=== PATIENT | female | born 1985 | race Caucasian/White ===

== ENCOUNTER 2018-03-12 15:55 | Emergency (ER) | payer SELFPAY ==
--- NOTE | 2018-03-12 16:35 | PD ---
HPI Chief Complaint Abdominal pain Date Seen: Mar 12, 2018 Travel History International Travel<30 Days: No Contact w/Intl Traveler<30Days: No Known Affected Area: No History of Present Illness HPI Patient is a 33-year-old at 18/6 weeks gestation that presents to the [facility] ED with a chief complaint of abdominal pain that began today. Patient describes the pain as 6/10 weird, burning, cramping pain that is worse with movement and better when lying down. The pain is located in her upper and mid abdomen and suprapubic area. She has not taken any medications for the pain. Patient also reports foul-smelling vaginal discharge but is unsure of the color. She denies contractions, gush of leakage of fluid, vaginal bleeding , vaginal itching, dysuria, fever, chills, diarrhea, back pain, headache, chest pain, shortness of breath, and blurry vision. Her last sexual intercourse was 2 weeks ago. She has not really felt her baby move today. She had one episode of vomiting yesterday that looked like food and endorses back pain. Notably, the patient has not had care during this . Patient moved to the [place] area to stay with her best friend 2 weeks ago due to some issues with the baby's father. She may have had an ultrasound early on but her JESUS is based on her LMP. She would like to know the sex of her baby. Weeks Gestation: 18 Para: 1 : 5 : 3 History Past Medical History Medical History: Denies Significant Hx Obstetric History Obstetric History 1 vaginal full-term uncomplicated delivery at 40 weeks in 2008. 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 SKIN: Warm and dry. HEAD: Normocephalic and atraumatic. EYES: No scleral icterus. No injection or drainage. ENT: No nasal drainage noted. Mucous membranes pink. Airway patent. NECK: Supple, trachea midline. No JVD. CARDIOVASCULAR: Regular rate and rhythm without murmurs, gallops, or rubs. RESPIRATORY: Breath sounds equal bilaterally. No accessory muscle use. ABDOMEN/GI: Abdomen soft, non-tender, bowel sounds present, no rebound, no guarding Gravid to 18 weeks size GENITOURINARY: External Genitalia: intact and normal in appearance FHT's: 145 by doppler PELVIC EXAM: Normally developed genitalia with no external lesions or eruptions. Vagina and cervix show copious amounts of white curd-like vaginal discharge. OS patent. No cervical motion tenderness. No cervical friability. Musty vaginal odor. EXTREMITIES: No cyanosis or edema. BACK: Nontender without obvious deformity. No CVA tenderness. NEUROLOGICAL: Awake and alert. Motor and sensory grossly within normal limits. Five out of 5 muscle strength in all muscle groups. Normal speech. Data Data Vital Signs Reviewed: Yes Orders Orders Vital Signs (Adult) .ON ADMISSION (03/12/18 16:22) ^ Labor Status (03/12/18 16:22) Urinalysis - C+S If Indicated (03/12/18 16:22) ^ Non Stress Test (03/12/18 16:22) ^ Hydration (03/12/18 16:22) Ob/Psych Drug Screen, Urine (03/12/18 16:22) Wet Prep Profile (03/12/18 16:34) MDM Medical Record Reviewed: Yes Interpretation(s) 33-year-old presents with abdominal pain of 1 day duration Plan 1. IUP -FHT 145 by doppler - reassuring -Patient will need to establish with an OB provider for care * She has been provided information about the [facility] and [facility] 2. Abdominal pain -UA not indicative of infection -UDS only positive for marijuana -Wet prep profile was negative although curd-like vaginal discharge was observed on exam -Recommend Monistat applied vaginally at bedtime x 3 days -OTC Tylenol for pain - administer 1000mg in the ED DW Dr. Cook Diagnosis Diagnosis: Primary Impression: Abdominal pain Additional Impressions: Uterine contractions during 18 weeks gestation of Dehydration during Disposition: 01 DISCHARGE HOME Condition: Stable Scripts Miconazole 3 Vaginal Cream (Monistat 3 Vaginal Cream) 4 % Cream 1 APPL VAGINAL HS for Infection, #1 BOX 0 Refills Prov: Deanne Mario MD R2 03/12/18 Patient Instructions: Abdominal Pain in (ED) Deanne Mario MD R2 Mar 12, 2018 16:35
[2018-03-12] MEDS ORDERED: PREN1TAB45 PO (16:52)
[2018-03-12 16:59] LABS: BACTERIA, URINE FEW /hpf; BILIRUBIN, URINE NEG (NEG); BLOOD, URINE NEG (NEG); GLUCOSE,URINE NEG (NEG); KETONE, URINE NEG (NEG); MUCUS URINE FEW /lpf (OCC); NITRITE,URINE NEG (NEG); PH, URINE 6.5 (5.0-8.5); SQUAMOUS EPITHELIAL CELL URINE 6 /hpf (0-5); URINE COLOR YELLOW (YELLW/STRAW); URINE LEUKOCYTE ESTERASE NEG (NEG)
[2018-03-12] MEDS ORDERED: MICO1CRE2 VAGINAL (17:36)
[2018-03-12] MEDS ORDERED: ACETAMINOPHEN 500 MG CPLT PO ONE (17:45)
== END 2018-03-12 18:00 | disposition home or self-care (01) ==
LOC: HOBED 15:55
DX: O26.892 Other specified pregnancy related conditions, second trimester (principal); R10.9 Unspecified abdominal pain; N89.8 Other specified noninflammatory disorders of vagina; O62.9 Abnormality of forces of labor, unspecified; O99.282 Endocrine, nutritional and metabolic diseases complicating pregnancy, second trimester; E86.0 Dehydration; O99.333 Smoking (tobacco) complicating pregnancy, third trimester; O99.322 Drug use complicating pregnancy, second trimester; F12.90 Cannabis use, unspecified, uncomplicated; Z3A.18 18 weeks gestation of pregnancy
CPT/HCPCS: 80307; 81001; 87210; 99284; G0481

== ENCOUNTER 2018-08-01 08:40 | Inpatient (IN) ==
[2018-08-01] MEDS ORDERED: ceFAZolin 2 GM Premix Inj 2 GM/50 ML PIGGYBACK IV.SIG PRN (09:17)
--- NOTE | 2018-08-01 09:17 | P.HPOB ---
History of Present Illness Primary Care Physician: No Primary Care Physician , [facility] PCP History of Present Illness: 33 y/o F, at 39wk1 presents for c/s for LGA, hx of shoulder dystocia w/ clavicle fracture. Denies cxns, LOF, VB. +FM obhx: x 1 - complicated by shoulder dystocia, clavicle fracture requiring 1 year of PT TOP x 3 - medically medhx: HEP C surghx: tonsillectomy adenoidectomy wisdom teeth removal meds: PNV all: NKDA - Inpatient Certification I certify that the inpatient services were ordered in accordance with Medicare regulations governing the order. This includes certification that hospital inpatient services are reasonable and necessary and in the case of services not specified as inpatient-only under 42 CFR 419.22(n), that they are appropriately provided as inpatient services in accordance to with the 2-midnight benchmark under 43 CFR 412.3(e) Review of Systems All other systems reviewed negative except as stated in HPI PMFSH - History History Provided By: Patient - Medical History Medical History: Medical History (Last Reviewed 04/29/18 @ 17:34 by Estefania Youngblood MD) [place] teeth removed - Surgical History Surgical History: Surgical History (Last Reviewed 04/29/18 @ 17:34 by Estefania Youngblood MD) No history of previous surgery - Tobacco History Second Hand Smoke Exposure: Yes Smoking Status: Current every day smoker Tobacco Type: Cigarettes - Alcohol History How Often Do You Have a Drink Containing Alcohol: Never Medications and Allergies Allergies Allergy/AdvReac Type Severity Reaction Status Date / Time No Known Allergies Allergy Unknown Uncoded 03/12/18 16:08 Exam Narrative: FH: 42 FHR: cat 1 tracing, +accels, no decels Results - Labs CBC & Chem 7: 08/01/18 09:15 Caprini VTE Risk Assessment Caprini VTE Risk Assessment: No/Low Risk (score <= 1) Caprini Risk Assessment Model: Point Value = 1 Point Value = 2 Point Value = 3 Point Value = 5 Age 41-60 Minor surgery BMI > 25 kg/m2 Swollen legs Varicose veins or History of unexplained or recurrent spontaneous Oral contraceptives or hormone replacement Sepsis (< 1 month) Serious lung disease, including pneumonia (< 1 month) Abnormal pulmonary function Acute myocardial infarction Congestive heart failure (< 1 month) History of inflammatory bowel disease Medical patient at bed rest Age 61-74 Arthroscopic surgery Major open surgery (> 45 min) Laparoscopic surgery (> 45 min) Malignancy Confined to bed (> 72 hours) Immobilizing plaster cast Central venous access Age >= 75 History of VTE Family history of VTE Factor V Leiden Prothrombin [id number] Lupus anticoagulant Anticardiolipin antibodies Elevated serum homocysteine Heparin-induced thrombocytopenia Other congenital or acquired thrombophilia Stroke (< 1 month) Elective arthroplasty Hip, pelvis, or leg fracture Acute spinal cord injury (< 1 month) Prophylaxis Regimen: Total Risk Factor Score Risk Level Prophylaxis Regimen 0-1 Low Early ambulation 2 Moderate Order ONE of the following: *Sequential Compression Device (SCD) *Heparin 5000 units SQ BID 3-4 Higher Order ONE of the following medications: *Heparin 5000 units SQ TID *Enoxaparin/Lovenox 40 mg SQ daily (WT < 150 kg, CrCl > 30 mL/min) *Enoxaparin/Lovenox 30 mg SQ daily (WT < 150 kg, CrCl > 10-29 mL/min) *Enoxaparin/Lovenox 30 mg SQ BID (WT < 150 kg, CrCl > 30 mL/min) AND/OR *Sequential Compression Device (SCD) 5 or more Highest Order ONE of the following medications: *Heparin 5000 units SQ TID (Preferred with Epidurals) *Enoxaparin/Lovenox 40 mg SQ daily (WT < 150 kg, CrCl > 30 mL/min) *Enoxaparin/Lovenox 30 mg SQ daily (WT < 150 kg, CrCl > 10-29 mL/min) *Enoxaparin/Lovenox 30 mg SQ BID (WT < 150 kg, CrCl > 30 mL/min) AND *Sequential Compression Device (SCD) Assessment and Plan - Diagnosis (1) 39 weeks gestation of Code(s): Z3A.39 - 39 weeks gestation of Status: Acute Plan: 33 y/o F, at 39wk1 presents for c/s for LGA, hx of shoulder dystocia w/ clavicle fracture. - pre-op orders entered - Ancef 3g pre-op - labs reviewed - PCP aware - Hospitalist aware (2) Large for gestational age fetus Status: Acute (3) Shoulder (girdle) dystocia during labor and delivery, delivered Code(s): O66.0 - Obstructed labor due to shoulder dystocia Status: Acute - Plan Attending note-patient seen and evaluated initially presented for secondary to breech presentation. Ultrasound performed at the bedside confirms vertex presentation however by Yaniv's EFW approximately 9-1/2-10 pounds. The pelvis is quite contracted. After a lengthy discussion with the patient she reports a history of delivering with an episiotomy however the baby had significant shoulder injury which which involved tendon rupture during delivery as well as clavicular fracture with greater than 1 year to recover. Discussed with the patient the clinical estimate may be an over underestimate by 1 pound as of 1 week ago she did have an estimated weight of 7 pounds 13 ounces with a BPD of 99th percentile greater than. Patient is aware subsequently agrees to proceed with delivery she is aware of the alternatives benefits complications including but not limited to permanent injury of the bowel bladder nerve blood vessels ureters any structures in of the abdomen or pelvis injury vaginal bleeding anesthesia related with risks and will proceed with delivery. She has not signed for tubal consent but she would like some form of contraception which will be done which has been discussed and offered.
[2018-08-01] MEDS ORDERED: Citric Acid/Sodium Citrate Liq 30 ML UDC PO SCH (09:30)
[2018-08-01 09:40] LABS: Baso % (Auto) 0.3 % (0.0-2.0); Eos # (Auto) 0.1 th/mm3 (0.0-0.4); Eos % (Auto) 0.7 % (0.0-4.0); Hemoglobin 12.8 gm/dL (11.6-15.3); Lymph # (Auto) 2.5 th/mm3 (1.0-4.8); Lymph % (Auto) 21.5 % (9.0-44.0); Mean Corpuscular HGB Conc 33.7 % (32.0-36.0); Mean Corpuscular Hemoglobin 30.4 pg (27.0-34.0); Mean Corpuscular Volume 90.2 fL (80.0-100.0); Mean Platelet Volume 10.2 fL (7.0-11.0); Mono # (Auto) 0.9 th/mm3 (0.0-0.9); Mono % (Auto) 7.8 % (0.0-8.0); Neut % (Auto) 69.7 % (16.0-70.0); Platelet Count 279 th/mm3 (150-450); Red Blood Count 4.21 mil/mm3 (4.00-5.30); Red Cell Distribution Width 14.5 % (11.6-17.2); White Blood Count 11.4 th/mm3 (4.0-11.0)
[2018-08-01] MEDS ORDERED: Morphine Sulfate PF Inj 5 MG/10 ML Ampul ONE (09:41)
[2018-08-01 09:59] LABS: Bacteria,Urine Few /hpf; Bilirubin,Urine Negative (Negative); Clarity,Urine Hazy (Clear); Color,Urine Yellow (Yellw/Straw); Glucose,Urine (UA) Negative (Negative); Leukocyte Esterase,Urine Negative (Negative); Mucus,Urine Few /lpf (Occasional); Nitrite,Urine Negative (Negative); Specific Gravity,Urine 1.019 (1.002-1.035); Squamous Epithelial Cell,Urine 3 /hpf (0-5)
[2018-08-01] MEDS ORDERED: ceFAZolin Inj 3,000 MG in Sodium Chlor 0.9% Inj 100 ML IV.SIG SCH (10:00)
[2018-08-01 10:01] LABS: Amphetamine Screen,Urine Neg (Neg); Barbiturate Screen,Urine Neg (Neg); Cannabinoid Screen,Urine Neg (Neg); Cocaine Screen,Urine Neg (Neg)
[2018-08-01 10:04] LABS: Opiate Screen,Urine Neg (Neg)
[2018-08-01] MEDS ORDERED: Ketorolac Inj 30 MG/ML (IVP) Vial IV.PUSH ONE (10:50)
[2018-08-01] MEDS ORDERED: Phenylephrine/NS 1000 MCG/10ML Syringe IV.PUSH ONE (10:50)
[2018-08-01] MEDS ORDERED: Witch Hazel 50%/Glyderin 12.5% 40 Pad Jar RECTAL PRN (11:42)
[2018-08-01] MEDS ORDERED: Zolpidem Tartrate 5 MG Tablet PO PRN (11:42)
[2018-08-01] MEDS ORDERED: Bisacodyl 10 MG Supp RECTAL PRN (11:42)
[2018-08-01] MEDS ORDERED: Naloxone Inj 0.4 MG/ML Vial IV.PUSH PRN ×2 (11:42→13:48)
[2018-08-01] MEDS ORDERED: Oxytocin 30 Units/500ml Premix 30 UNITS/500 ML BAG IV.CONT PRN (11:42)
[2018-08-01] MEDS ORDERED: Benzocaine 20% Top Spray 60 ML Can TOPICAL PRN (11:42)
[2018-08-01] MEDS ORDERED: Acetaminophen 325 MG Tablet PO PRN (11:42)
--- NOTE | 2018-08-01 12:29 | P.OP ---
- Preoperative Diagnosis (1) Hepatitis C virus (2) 39 weeks gestation of (3) Large for gestational age fetus (4) Shoulder (girdle) dystocia during labor and delivery, delivered - Postoperative Diagnosis (1) 39 weeks gestation of (2) Large for gestational age fetus (3) Shoulder (girdle) dystocia during labor and delivery, delivered (4) Hepatitis C virus Date of procedure: 08/01/18 Procedure: 1'LTCS Anesthesia: spinal Surgeon: Colin Zuniga MD Estimated blood loss (mL): 650 IV fluids (mL): 1,500 Urine output (mL): 150 Pathology: other (placenta, cord blood) Operation and Findings: Antibiotics: 3g ancef DVT prophylaxis: SCDs were in place and active throughout the entire procedure Findings: vtx female delivered at 11:26 with 4060g with APGARs of 8/9, normal tubes/ovaries b/l Complications: none Disposition: to PACU in stable condition Indication: 33y/o @ 39.1wks with h/o x1 complicated by severe shoulder dystocia and clavicular fracture/brachial plexus injury requiring therapy x1yr. This EFW was macrosomic with >99% HC at 38wks. Technique: The R/B/A were discussed with the pt, all questions answered, and consents signed. The pt was taken to the operating room where spinal anesthesia was found to be adequate. She was prepped and draped in the normal sterile fashion in the dorsal supine position with leftward tilt. A Pfannenstiel skin incision was made with the scalpel and carried through to the underlying layer of fascia. The fascia was incised in the midline and the incision extended laterally with Castaneda scissors. The superior aspect of the fascial incision was grasped with Manjinder clamps, elevated, and the underlying rectus muscles dissected off bluntly and with Castaneda scissors. Attention was then turned to the inferior aspect of this incision which, in a similar fashion, was grasped, tented up with Manjinder clamps, and the rectus muscles dissected off bluntly and with Castaneda scissors. The rectus muscles were in the midline, and the peritoneum identified and entered bluntly. The peritoneal incision was stretched with good visualization of the bladder. The bladder blade was inserted and the vesicouterine peritoneum identified, grasped with pick-ups, and entered sharply with Metzenbaum scissors. This incision was extended laterally and a bladder flap created digitally. The bladder blade was then reinserted and the lower uterine segment incised in a transverse fashion with the scalpel. The uterine incision was stretched superiorly and inferiorly. The bladder blade was removed and the infant's head delivered atraumatically followed by the body. Delayed cord clamping ensued for 45sec while the was dried, suctioned, and stimulated. The cord was double clamped and cut and infant handed off to the waiting team. The placenta expelled with manual fundal massage. The uterus was exteriorized and cleared of all clots and debris. The uterine incision was repaired with 0- vicryl in a running, locked fashion. A second layer using 0-monocryl suture was used to obtain excellent hemostasis via embrication. The posterior cul-de-sac was suctioned and the uterus was returned to the abdomen. The gutters were cleared of all clots and debris. The peritoneum was reapproximated with 3-0 vicryl in a running fashion. The underneath fascia was inspected and found to be hemostatic. The fascia was closed with 0-vicryl in a running fashion. The subcutaneous tissue was irrigated with saline and made hemostatic with the Bovie. The subcutaneous layer was reapproximated with plain gut running in 2 layers. The skin was closed with 4-0 monocryl. Steristrips were placed and the incision dressed appropriately. The patient tolerated the procedure well. She was taken to the recovery room in stable condition. Sponge, lap, instrument, and needle counts were correct x3.
[2018-08-01] MEDS ORDERED: Measles/Mumps/Rubella Vaccine Inj 0.5 ML Vial SQ ONE (16:00)
[2018-08-01] MEDS ORDERED: Diphtheria/Tetanus/Pertussis Vaccine Inj 0.5 ML Syringe IM ONE (16:00)
[2018-08-01] MEDS: Senna/Docusate Sodium 8.6/50 MG Tablet PO SCH (21:35)
--- NOTE | 2018-08-02 07:33 | P.PNOB ---
Subjective Post op day: 1 Interval history: Patient is a 33-year-old delivered at 39 weeks and 1 days. Patient is day 1 after section due to LGA. Patient's pain is well- controlled. Patient reports nausea and vomiting last night. She reports an appetite this morning. Patient reports minimal bleeding. Patient has passed gas but no bowel movements. Patient is walking without lower extremity pain or shortness of breath. Patient reports desire for contraception and breast- feeding. Objective Vital Signs/I&O: Vital Signs 08/01/18 09:36 08/01/18 09:45 08/01/18 12:15 Temperature 98.4 F 97.7 F Pulse Rate 94 H 73 Respiratory Rate 18 14 Blood Pressure 119/83 90/45 L 08/01/18 12:27 08/01/18 12:28 08/01/18 12:45 Temperature Pulse Rate 76 73 Respiratory Rate 16 16 Blood Pressure 102/57 L 109/50 L 08/01/18 13:00 08/01/18 13:15 08/01/18 20:00 Temperature 98.5 F Pulse Rate 71 73 108 H Respiratory Rate 16 9 L 18 Blood Pressure 103/59 L 107/56 L 104/70 08/02/18 00:00 08/02/18 04:00 Temperature 98.1 F 98.1 F Pulse Rate 100 H 55 L Respiratory Rate 18 18 Blood Pressure 119/60 118/59 L Intake & Output 08/01/18 08/02/18 08/02/18 18:59 06:59 18:59 Intake Total 1000 / 1000 1000 / 1000 Balance 1000 / 1000 1000 / 1000 Weight 118.388 kg Intake: IV 1000 / 1000 1000 / 1000 LR 1000 mL Inj 1,000 ML @ 150 1000 / 1000 1000 / 1000 mls/hr IV.CONT .Q6H40M [facility] Rx#: [id number] Other: Weight On Admission 118.388 kg Result Diagrams: 08/01/18 09:15 Objective Remarks: GENERAL: Well-nourished, well-developed patient. CARDIOVASCULAR: Regular rate and rhythm without murmurs, gallops, or rubs. RESPIRATORY: Breath sounds equal bilaterally. No accessory muscle use. ABDOMEN/GI: Abdomen soft, non-tender, bowel sounds present. Incision: dry and intact. Fundus: Firm, non-tender at umbilicus. GENITOURINARY: Light to moderate bleeding. EXTREMITIES: No cyanosis or edema, non-tender, without signs of DVT. Medications and IVs: Active Medications Acetaminophen (Tylenol) 650 mg PO Q4H PRN PRN Reason: PAIN SCALE 1 TO 2 Last Admin: 08/01/18 16:56 Dose: 650 mg Al Hydroxide/Mg Hydroxide (Milk Of Magnesia Liq) 30 ml PO Q12H PRN PRN Reason: Mild Constipation Benzocaine (Americaine 20% Top [place]) 1 spray TOPICAL Q4H PRN PRN Reason: For Perineum Discomfort Bisacodyl (Dulcolax Supp) 10 mg RECTAL DAILY PRN PRN Reason: SEVERE CONSITIPATION Citric Acid/Sodium Citrate (Sodium Citrate/Citric Acid Liq) 30 ml PO [employer] [facility] Stop: 08/05/18 09:29 Last Admin: 08/01/18 10:45 Dose: 30 ml Diphenhydramine HCl (Benadryl) 50 mg PO Q6H PRN PRN Reason: MILD TO MODERATE ITCHING Stop: 08/02/18 13:47 Diphenhydramine HCl (Benadryl Inj) 25 mg IV.PUSH Q6H PRN PRN Reason: MILD TO MODERATE ITCHING Stop: 08/02/18 13:47 Lactated Ringer's (Lr 1000 Ml Inj) 1,000 mls @ 150 mls/hr IV.CONT .Q6H40M [facility] Last Admin: 08/02/18 03:57 Dose: 150 mls/hr Cefazolin Sodium 3,000 mg/ (Sodium Chloride) 130 mls @ 200 mls/hr IV.SIG [employer] INSPECTOR [facility] Last Admin: 08/01/18 10:45 Dose: 200 mls/hr Oxytocin (Pitocin 30 Units/Ns 500 Ml Premix) 30 units in 500 mls @ 100 mls/hr IV.CONT UNSCH PRN PRN Reason: Heavy bleeding Ibuprofen (Motrin) 800 mg PO Q8H PRN PRN Reason: For Cramping Last Admin: 08/02/18 02:37 Dose: 800 mg Lactulose (Lactulose Liq) 30 ml PO DAILY PRN PRN Reason: SEVERE CONSITIPATION Miscellaneous Information ([facility] Information) 1 each OTHER UNSCH PRN PRN Reason: SEE LABEL COMMENTS Stop: 08/02/18 13:47 Miscellaneous Information ([facility] Nursing Information) 1 each OTHER UNSCH PRN PRN Reason: SEE LABEL COMMENTS Stop: 08/02/18 13:47 Naloxone HCl (Narcan Inj) 0.1 mg IV.PUSH Q2M PRN PRN Reason: for opiate reversal Naloxone HCl (Narcan Inj) 0.4 mg IV.PUSH UNSCH PRN PRN Reason: SEE LABEL COMMENTS Stop: 08/02/18 13:47 Ondansetron HCl (Zofran Odt) 4 mg PO Q6H PRN PRN Reason: NAUSEA OR VOMITING Last Admin: 08/02/18 02:33 Dose: 4 mg Oxycodone/Acetaminophen (Percocet 5/325 Mg) 1 tab PO Q4H PRN PRN Reason: PAIN SCALE 3 TO 5 Last Admin: 08/02/18 06:19 Dose: 1 tab Oxycodone/Acetaminophen (Percocet 5/325 Mg) 2 tab PO Q4H PRN PRN Reason: PAIN SCALE 6 TO 10 Senna/Docusate Sodium (Miri-Colace) 1 tab PO BID [facility] Last Admin: 08/01/18 21:35 Dose: 1 tab Sennosides (Senokot) 17.2 mg PO Q12H PRN PRN Reason: Moderate Constipation Sodium Chloride (Ns Flush) 2 ml IV.FLUSH BID [facility] Last Admin: 08/02/18 03:56 Dose: Not Given Sodium Chloride (Ns Flush) 2 ml IV.FLUSH UNSCH PRN PRN Reason: FLUSH AFTER USING IV ACCESS Witch [place]idy/Glycerin (Tucks Pads) 1 applicatio RECTAL QID PRN PRN Reason: HEMORRHOIDS Zolpidem Tartrate (Ambien) 5 mg PO HS PRN PRN Reason: SLEEP Assessment and Plan - Diagnosis (1) Normal course Code(s): Z39.2 - Encounter for routine follow-up Status: Acute Plan: Patient is a 33-year-old delivered at 39 weeks and 1 days. Patient is day 1 after section due to LGA. Patient was counseled to do 6 weeks of pelvic rest. Patient was counseled to follow up in 6 weeks. Patient requested follow-up and contraception. --AF VSS --Continue routine care --Motrin and Percocet when necessary for pain --Encourage OOB --Pelvic rest for 6 weeks will need follow-up appointment at that time. --Contraception: Patient is going to get a nexplanon or IUD with her OB --Anticipate discharge Saturday
[2018-08-02] MEDS: Senna/Docusate Sodium 8.6/50 MG Tablet PO SCH ×2 (08:09→21:00)
[2018-08-02 08:12] LABS: Baso % (Auto) 0.2 % (0.0-2.0); Eos # (Auto) 0.1 th/mm3 (0.0-0.4); Eos % (Auto) 0.8 % (0.0-4.0); Hematocrit 34.2 % (35.0-46.0); Hemoglobin 11.7 gm/dL (11.6-15.3); Lymph # (Auto) 2.5 th/mm3 (1.0-4.8); Lymph % (Auto) 20.2 % (9.0-44.0); Mean Corpuscular HGB Conc 34.2 % (32.0-36.0); Mean Corpuscular Hemoglobin 30.7 pg (27.0-34.0); Mean Corpuscular Volume 89.8 fL (80.0-100.0); Mean Platelet Volume 10.3 fL (7.0-11.0); Mono % (Auto) 8.5 % (0.0-8.0); Neut # (Auto) 8.6 th/mm3 (1.8-7.7); Neut % (Auto) 70.3 % (16.0-70.0); Platelet Count 259 th/mm3 (150-450); Red Blood Count 3.81 mil/mm3 (4.00-5.30); Red Cell Distribution Width 14.8 % (11.6-17.2); White Blood Count 12.3 th/mm3 (4.0-11.0)
[2018-08-02] MEDS: Famotidine 20 MG Tablet PO SCH ×2 (09:00→22:09)
--- NOTE | 2018-08-03 08:14 | P.PNOB ---
Subjective Post op day: 2 Interval history: 33 yo now POD 2 from C/S for macrosomia. Today feels well. Nausea improving. Tolerating diet. Pain and bleeding decreasing. OOB without trouble. NO CP/SOB. Objective Vital Signs/I&O: Vital Signs 08/02/18 19:29 Temperature 98.5 F Pulse Rate 81 Respiratory Rate 20 Blood Pressure 118/51 L Result Diagrams: 08/02/18 07:39 Objective Remarks: GENERAL: Well-nourished, well-developed patient. CARDIOVASCULAR: Regular rate and rhythm without murmurs, gallops, or rubs. RESPIRATORY: Breath sounds equal bilaterally. No accessory muscle use. ABDOMEN/GI: Abdomen soft, non-tender, bowel sounds present. Incision: Dressing in place, clean and dry. Fundus: Firm, non-tender at umbilicus. GENITOURINARY: Light to moderate bleeding. EXTREMITIES: No cyanosis or edema, non-tender, without signs of DVT. Medications and IVs: Active Medications Acetaminophen (Tylenol) 650 mg PO Q4H PRN PRN Reason: PAIN SCALE 1 TO 2 Last Admin: 08/01/18 16:56 Dose: 650 mg Al Hydroxide/Mg Hydroxide (Milk Of Magnesia Liq) 30 ml PO Q12H PRN PRN Reason: Mild Constipation Benzocaine (Americaine 20% Top [place]) 1 spray TOPICAL Q4H PRN PRN Reason: For Perineum Discomfort Bisacodyl (Dulcolax Supp) 10 mg RECTAL DAILY PRN PRN Reason: SEVERE CONSITIPATION Calcium Carbonate (Tums Chew) 500 mg CHEW Q2H PRN PRN Reason: reflux Citric Acid/Sodium Citrate (Sodium Citrate/Citric Acid Liq) 30 ml PO [employer] [facility] Stop: 08/05/18 09:29 Last Admin: 08/01/18 10:45 Dose: 30 ml Famotidine (Pepcid) 10 mg PO BID [facility] Last Admin: 08/02/18 22:09 Dose: 10 mg Lactated Ringer's (Lr 1000 Ml Inj) 1,000 mls @ 150 mls/hr IV.CONT .Q6H40M [facility] Last Admin: 08/03/18 03:03 Dose: Not Given Cefazolin Sodium 3,000 mg/ (Sodium Chloride) 130 mls @ 200 mls/hr IV.SIG [employer] [facility] Last Admin: 08/01/18 10:45 Dose: 200 mls/hr Oxytocin (Pitocin 30 Units/Ns 500 Ml Premix) 30 units in 500 mls @ 100 mls/hr IV.CONT UNSCH PRN PRN Reason: Heavy bleeding Ibuprofen (Motrin) 800 mg PO Q8H PRN PRN Reason: For Cramping Last Admin: 08/03/18 03:02 Dose: 800 mg Lactulose (Lactulose Liq) 30 ml PO DAILY PRN PRN Reason: SEVERE CONSITIPATION Naloxone HCl (Narcan Inj) 0.1 mg IV.PUSH Q2M PRN PRN Reason: for opiate reversal Ondansetron HCl (Zofran Odt) 4 mg PO Q6H PRN PRN Reason: NAUSEA OR VOMITING Last Admin: 08/02/18 08:09 Dose: 4 mg Oxycodone/Acetaminophen (Percocet 5/325 Mg) 1 tab PO Q4H PRN PRN Reason: PAIN SCALE 3 TO 5 Last Admin: 08/03/18 05:29 Dose: 1 tab Oxycodone/Acetaminophen (Percocet 5/325 Mg) 2 tab PO Q4H PRN PRN Reason: PAIN SCALE 6 TO 10 Last Admin: 08/03/18 01:04 EST Dose: 2 tab Senna/Docusate Sodium (Miri-Colace) 1 tab PO BID [facility] Last Admin: 08/02/18 21:00 Dose: 1 tab Sennosides (Senokot) 17.2 mg PO Q12H PRN PRN Reason: Moderate Constipation Sodium Chloride (Ns Flush) 2 ml IV.FLUSH BID [facility] Last Admin: 08/02/18 22:03 Dose: Not Given Sodium Chloride (Ns Flush) 2 ml IV.FLUSH UNSCH PRN PRN Reason: FLUSH AFTER USING IV ACCESS Witch Cassidy/Glycerin (Tucks Pads) 1 applicatio RECTAL QID PRN PRN Reason: HEMORRHOIDS Zolpidem Tartrate (Ambien) 5 mg PO HS PRN PRN Reason: SLEEP Assessment and Plan - Diagnosis (1) Normal course Code(s): Z39.2 - Encounter for routine follow-up Status: Acute Plan: Patient is a 33-year-old delivered at 39 weeks and 1 days. Patient is day 1 after section due to LGA. Patient was counseled to do 6 weeks of pelvic rest. Patient was counseled to follow up in 6 weeks. Patient requested follow-up and contraception. --AF VSS --Continue routine care --Motrin and Percocet when necessary for pain --Encourage OOB --Pelvic rest for 6 weeks will need follow-up appointment at that time. --Contraception: Patient is going to get a nexplanon or IUD with the [facility] --Anticipate discharge today/tomorrow based on patient progress
[2018-08-03] MEDS: Senna/Docusate Sodium 8.6/50 MG Tablet PO SCH (09:23)
[2018-08-03] MEDS: Famotidine 20 MG Tablet PO SCH (09:24)
== END 2018-08-03 13:13 | disposition home or self-care (01) ==
LOC: H2E 08:40 → H1EA 13:44
PROVIDERS: ADMIT Obstetrics & Gynecology; ATTEND Obstetrics & Gynecology